=== PATIENT | male | born 1945 | race Caucasian/White ===

== ENCOUNTER → 2017-01-30 | Outpatient (CLI) | payer MEDICARE, OTHER | END | disposition home or self-care (01) | LOC: GMAH 10:38 | PROVIDERS: ATTEND Family Medicine | DX: Z12.5 Encounter for screening for malignant neoplasm of prostate (principal); I10 Essential (primary) hypertension | CPT/HCPCS: 84443; 84550; G0103 ==

== ENCOUNTER → 2017-02-15 | Outpatient (CLI) | payer MEDICARE, OTHER | END | disposition home or self-care (01) | LOC: GMAH 10:37 | PROVIDERS: ATTEND Family Medicine | DX: M10.00 Idiopathic gout, unspecified site (principal) ==

== ENCOUNTER → 2018-02-07 | Outpatient (CLI) | payer MEDICARE, OTHER | LOC: GMAH 11:40 | PROVIDERS: ATTEND Family Medicine | DX: E78.1 Pure hyperglyceridemia (principal); M10.00 Idiopathic gout, unspecified site; Z12.5 Encounter for screening for malignant neoplasm of prostate ==

== ENCOUNTER → 2018-12-24 | Outpatient (CLI) | payer OTHER ==
--- NOTE | 2018-12-24 15:21 | MRI ---
EXAM DESCRIPTION: Lumbar Spine w/o Contrast : Magnetic Resonance Imaging. CLINICAL HISTORY: RADICULOPATHY, LUMBAR REGION COMPARISON: CT abdomen and pelvis without contrast 07/01/2013. TECHNIQUE: Multiplanar, multiple standard sequences, non contrast MRI, lumbar spine. FINDINGS: L5-S1: Disc space is well demonstrated on axial T2-weighted series 501, image 3. Heterogeneous marrow signal throughout the lumbar spine and upper sacrum. Disc is desiccated with decreased disc space anterior bulging and endplate spurs. Bilateral shortened pedicles. Bilateral facet arthrosis and hypertrophy with the ligaments more right than left. Narrowing of the bilateral subarticular recesses more on the left. Moderate to severe narrowing bilateral foramina. AP canal diameter 9 mm. L4-L5: Disc desiccation and disc space loss. Anterior Schmorl's node in the superior L5 endplate versus old compression injury. Anterior bulging and endplate spurs. Posterior bulge with left posterior protrusion and hyperintense T2 annular fissure protruding 6 mm into the canal and also below the disc space, encroaching on the left subarticular recess and the descending left L5 nerve. Left paracentral AP canal diameter 7 mm. Hypertrophic facet arthrosis bilaterally with flavum ligaments and shortened pedicles. Left foraminal stenosis and right foraminal severe narrowing. Left side Modic type I endplate reactive changes. L3-4: Disc desiccation and disc space loss more right than left. Calcification versus a in the right side disc. Bilateral shortened pedicles. Anterior disc bulge and endplate hypertrophy. Modic type II endplate reactive changes to the right of midline with disc spur complex encroaching on the right foramen which is stenotic. Posterior broad-based disc bulge with inferior migration of the disc into the left subarticular recess, and moderate to severe left foraminal narrowing. Bilateral hypertrophic facet arthrosis and ligament hypertrophy more on the left. Encroachment on the left subarticular recess and the descending left L4 nerve. AP canal diameter 9 mm. L2-L3: Disc desiccation and disc space loss anterior bulging and endplate ridging. Posterior midline disc bulge abutting the thecal sac. Hypertrophic facet arthrosis with the flavum ligaments and minimal shortening of the bilateral pedicles. AP canal diameter 10 mm. Moderate to severe right foraminal narrowing. Mild to moderate left foraminal narrowing. L1-L2: Disc mild desiccation with disc space preserved. Anterior superior L2 endplate Schmorl's node. No posterior bulging. Mild bilateral hypertrophic facet arthrosis with ligament enlargement. Mild to moderate canal narrowing. Mild right foraminal narrowing and mild to moderate left foraminal narrowing. T12-L1: Disc mild desiccation and minimal disc space loss. Anterior disc bulge and hypertrophic anterior spurs. Conus terminates just above the disc space level with no posterior disc bulge. Mild left foraminal narrowing mild to moderate right foraminal narrowing. L1-L4 levoscoliosis. Paravertebral soft tissues paraspinal muscle atrophy.. No significant edema marrow signal in the remaining vertebral bodies and the posterior elements. Vertebral bodies are not compressed at any level. IMPRESSION: 1. Multiple levels of canal narrowing or stenosis secondary to posterior disc bulging, or herniation, hypertrophic facet arthrosis and ligament enlargement, and bilateral shortened pedicles. Also multiple levels of unilateral or bilateral significant foraminal narrowing or stenosis. 2. Posterior L4-5 disc bulge with left protrusion and annular fissure encroaching on the left subarticular recess and the descending left L5 nerve. Mild to moderate canal stenosis. Bilateral severe foraminal narrowing or mild stenosis. 3. Bulge of the L3-L4 disc into the left subarticular recess encroaching on the descending left L4 nerve. Mild canal stenosis. Stenosis of the right foramen. 4. Borderline canal stenosis L2-L3. Moderate to severe right foraminal narrowing. Electronically signed by: Pacheco Escobedo MD 12/24/2018 3:18 PM CDT
== END ==
LOC: MRI 08:13
PROVIDERS: ATTEND Family Medicine
DX: M51.16 Intervertebral disc disorders with radiculopathy, lumbar region (principal)

== ENCOUNTER → 2019-06-24 | Outpatient (CLI) | payer OTHER | LOC: GMA MATASK 14:42 | PROVIDERS: ATTEND Family Medicine | DX: Z12.5 Encounter for screening for malignant neoplasm of prostate (principal); I10 Essential (primary) hypertension | CPT/HCPCS: 84443; 84550; G0103 ==